=== PATIENT | male | born 1955 | race Native Hawaiian/Other Pacific Islander ===

== ENCOUNTER 2020-06-23 16:12 | Outpatient (CLI) | payer BC, OTHER | END 2020-06-23 20:18 | disposition home or self-care (01) | LOC: INF 16:12 | PROVIDERS: ATTEND Internal Medicine | DX: Z23 Encounter for immunization (principal) | CPT/HCPCS: 96372 ==

== ENCOUNTER 2020-07-21 15:17 | Outpatient (CLI) | payer BC, OTHER | END 2020-07-21 21:35 | disposition home or self-care (01) | LOC: INF 15:17 | PROVIDERS: ATTEND Internal Medicine | DX: Z23 Encounter for immunization (principal) | CPT/HCPCS: 96372 ==